=== PATIENT | female | born 1990 | race Caucasian/White ===

== ENCOUNTER 2018-06-12 18:22 | Emergency (ER) | payer OTHER ==
[~2018-06-12] VITALS: Ht 157.5 cm; Wt 102.1 kg
[2018-06-12] MEDS ORDERED: ROBAXIN500 MG PO (18:58)
[2018-06-12] MEDS ORDERED: IBU600 MG PO (18:58)
[2018-06-12] MEDS ORDERED: MEDROLDOSEPACK PO (18:58)
[2018-06-12 19:31] VITALS: BP 154/78
== END 2018-06-12 19:32 | disposition home or self-care (01) ==
LOC: M.ERS 18:22
DX: S29.012A Strain of muscle and tendon of back wall of thorax, initial encounter (principal); X58.XXXA Exposure to other specified factors, initial encounter; Y93.89 Activity, other specified; Y92.89 Other specified places as the place of occurrence of the external cause; Y99.8 Other external cause status; Z98.890 Other specified postprocedural states